=== PATIENT | male | born 1945 | race Caucasian/White ===

== ENCOUNTER 2025-03-30 06:17 | Day surgery (SDC) | payer MEDICARE, SELFPAY ==
[2025-03-30] VITALS (11 sets, daily range): BP systolic 125–148; BP diastolic 66–79; BMI 25.8
[2025-03-30] MEDS: NORMOSOL-R/PLASMALYTE-A 1000 IV (12:57)
[2025-03-30] MEDS: SUBLIMAZE 25 MCG IV ×2 (16:39→16:50)
[2025-03-30] MEDS: NSS 1000 IV (17:51)
[2025-03-30] MEDS: LOPRESSOR 12.5 MG PO (19:30)
[2025-03-30] MEDS: SENOKOT 17.2 MG PO (19:30)
--- NOTE | 2025-03-30 19:30 | PTCARENOTE ---
Pt received from day shift RN at 1915. Pt christi, AAOx3, VSS. Pt complains of mild discomfort on penis. Pt receptive to room and call moon. Pt bed in lowest position and call moon within reach. Pt educated on importance of call moon usage, pt
relays understanding and cooperation. Will continue with current plan of care.
[2025-03-30] MEDS: CRESTOR 40 MG PO (22:05)
[2025-03-30] MEDS: ZETIA 10 MG PO (22:05)
[2025-03-30] MEDS: FLOMAX 0.4 MG PO (22:05)
[2025-03-30] MEDS: MELATONIN 5 MG PO (22:59)
[2025-03-31 02:56] VITALS: BP 115/64
--- NOTE | 2025-03-31 06:20 | PTCARENOTE ---
Start of shift up until 0500, pt CBI output urine clear yellow. At 0600, pt CBI output was noticed to be red punch color with few clots. This RN irrigated morales catherter to ensure no clot blockage. Rate increased. CBI draining well. Not clamped per
order.
[2025-03-31 07:20] VITALS: BP 133/65
[2025-03-31] MEDS: COZAAR 25 MG PO (08:57)
[2025-03-31] MEDS: SENOKOT 17.2 MG PO (08:57)
[2025-03-31] MEDS: ASPIR LOW (ENTERIC COATED) 81 MG PO (08:58)
[2025-03-31] MEDS: PROTONIX 40 MG PO (08:58)
[2025-03-31] MEDS: ORETIC 25 MG PO (08:58)
[2025-03-31] MEDS: LOPRESSOR 12.5 MG PO (08:58)
--- NOTE | 2025-03-31 09:52 | W.PN.URO.CBU ---
Today's Communication / Plan
-
TOV
Discharge
Assessment / Plan
-
79M POD 1 sp TURP
Trial of void
likely discharge today
Diagnosis
-
Date of Service: March 31, 2025
-
Patient Diagnosis:
BPH
Post Op Day: 1 s/p TURP
Subjective
-
feeling well
no bleeding o/n
no pain
Objective
-
Vital Signs
Temp Pulse Resp BP Pulse Ox
97.6 F 57 16 133/65 97
03/31/25 07:20 03/31/25 08:57 03/31/25 07:20 03/31/25 08:57 03/31/25 07:20
Intake and Output
03/30/25 03/31/25 04/01/25
06:59 06:59 06:59
Intake Total 1150 / 1150 480 / 480
Output Total 2224
Balance -1075 / -1075 480 / 480
Intake:
Oral fluids 480 / 480
IV fluids (Total) 1150 / 1150
Normosol 150 / 150
Output:
True Urine Output from CBI 2224
Physical Exam
-
General - well developed, well nourished, no acute distress
Chest - clear bilaterally
Abdomen - soft, non-tender
Treviño in place, clear urine
Skin - warm & dry with no rash
Neuro - AOx3, no motor deficits
Extremities - no clubbing, no cyanosis, no edema
--- NOTE | 2025-03-31 10:21 | CM ---
CM reviewed chart, patient seen bedside, patient admitted SDD. Patient resides with his spouse in a multiple story home, four steps to enter. Patient denies use of DME, is independent with ADLs/IADLs. Denies VN/SNF. Pharmacy [facility]. Plan
for discharge today. Patient confirms transportation home, no needs.
Plan; home no needs
[2025-03-31 11:11] VITALS: BP 118/63
== END 2025-03-31 14:28 | disposition home or self-care (01) ==
LOC: SDS 06:17
PROVIDERS: ATTENDING PHYSICIAN Urology
DX: N40.0 Benign prostatic hyperplasia without lower urinary tract symptoms (principal)
CPT/HCPCS: 52601; 88305